=== PATIENT | male | born 1935 | race Two or more races ===

== ENCOUNTER 2019-06-25 20:07 | Emergency (ER) | payer SELFPAY ==
[~2019-06-25] VITALS: Ht 177.8 cm; Wt 69.0 kg
[2019-06-25 20:50] VITALS: BP 126/78
[2019-06-25 21:04] LABS: CHLORIDE 102 mEq/L (98-107)
[2019-06-25 21:05] LABS: HEMATOCRIT. 32.1 % (42.0-52.0); HEMOGLOBIN. 10.7 g/dL (14.0-18.0); MEAN CORPUSCULAR HEMOGLOBIN 29.4 pg (28.0-32.0); MEAN PLATELET VOLUME 7.9 fl (7.4-10.4); PLATELET 232 x1000/uL (130-400); RED BLOOD CELL COUNT 3.65 mill/uL (4.7-6.1); RED CELL DISTRIBUTION WIDTH 19.5 % (11.6-14.6)
[2019-06-25 21:09] LABS: ETHANOL BLOOD < 10 mg/dL
[2019-06-25 21:37] LABS: PLATELET ESTIMATE NORMAL
== END 2019-06-26 02:10 | disposition home or self-care (01) ==
LOC: ER 20:07
DX: Z00.00 Encounter for general adult medical examination without abnormal findings (principal)
CPT/HCPCS: 36415; 80320; 99283; G0480